=== PATIENT | female | born 2000 | race American Indian/Alaskan Native ===

== ENCOUNTER 2019-05-11 13:46 | Emergency (ER) | payer SELFPAY ==
--- NOTE | 2019-05-11 14:12 | Emergency Department Report ---
Chief Complaint: Extremity Injury, Upper Stated Complaint: LFT SHOULDER POSS DISLOCATED - HPI History of Present Illness: Ana is a 18 yo female MSE screening note: Focused history and physical exam performed. Due to findings the following was ordered: ED Disposition for MSE Clinical Impression: Encounter for medical screening examination Disposition: MED SCREENING EXAM-LEFT Is pt being admited?: No Does the pt Need Aspirin: No Condition: Stable Referrals: AGUSTÍN JAMES MD [Staff Physician] - 3-5 Days Forms: Work/School Release Form(ED)
[2019-05-11 14:13] VITALS: BP 121/75
== END 2019-05-11 14:30 | disposition left against medical advice (07) ==
LOC: ED 13:46
DX: M25.512 Pain in left shoulder (principal)
CPT/HCPCS: 99282

== ENCOUNTER 2019-06-13 12:07 | Emergency (ER) | payer SELFPAY ==
[2019-06-13 12:24] VITALS: BP 119/65
--- NOTE | 2019-06-13 12:33 | Emergency Department Report ---
Chief Complaint: Nausea/Vomiting/Diarrhea Stated Complaint: NAUSEA Time Seen by Provider: 06/13/19 12:27 - HPI History of Present Illness: This is a 18 y ear old with no prior symptoms presents to The ED cc of nausea x 2 days She denies any other symptoms States her LMP was last week and she is not She denies f/c/n/v/abd pain/diarhea/nsal congestion, cough or any other symptoms - ROS Review of Systems: As noted in HPI - Exam Vital Signs: Vital Signs 06/13/19 12:22 Temperature 98.1 F Pulse Rate 68 Respiratory 18 Rate Blood Pressure 119/65 O2 Sat by Pulse 98 Oximetry Physical Exam: GENERAL: Alert and oriented x3, no apparent distress, Normal Gait, atraumatic. LUNGS: Symetrical with respiration, No wheezing, no rales or crackles, CTAB. HEART: S1, S2 present, regular rate and rhythm without murmur, no rubs, no gallops. Non tender to palpation ABDOMEN: No organomegaly was noted,Positive bowel sounds, soft, and non-diste nded. . Nontender to palpation on all Quadrants, NO CVA tenderness. BACK: Full range of motion, no spinal tenderness, nontender to palpation. MSE screening note: Focused history and physical exam performed. Due to findings the following was ordered: ED Medical Decision Making - Medical Decision Making 17 y o f who presents with nausea only Discussed [employer] products Discussed follow up with pcp referrals given to patient Vital sighns normal ED Disposition for MSE Clinical Impression: Nausea Disposition: Z-07 MED SCREENING EXAM-LEFT Is pt being admited?: No Does the pt Need Aspirin: No Condition: Stable Instructions: Acute Nausea and Vomiting (ED) Additional Instructions: Make sure to follow up with the primary care physician as discussed. If you have any worsening symptoms or develop new symptoms please return to ED immediately. Referrals: [facility] [Outside] - 3-5 Days [facility] [Outside] - 3-5 Days Forms: Work/School Release Form(ED) Time of Disposition: 12:40
== END 2019-06-13 13:33 | disposition left against medical advice (07) ==
LOC: ED 12:07
DX: R11.0 Nausea (principal)
CPT/HCPCS: 99281

== ENCOUNTER 2019-12-05 17:37 | Emergency (ER) | payer OTHER, MEDICARE ==
[2019-12-05 17:46] VITALS: BP 139/100
--- NOTE | 2019-12-05 17:49 | Event Note ---
ED Screening Note Date of service: 12/05/19 Time: 17:48 ED Screening Note: c/o chest pain, worse onleft, that occurs mainly with movement of the chest wall and arms denies SOB, cough, leg pain/swelling, hormone use, or recent immobilization This initial assessment/diagnostic orders/clinical plan/treatment(s) is/are subject to change based on patients health status, clinical progression and re- assessment by fellow clinical providers in the ED. Further treatment and workup at subsequent clinical providers discretion. Patient/guardian urged not to elope from the ED as their condition may be serious if not clinically assessed and managed. Initial orders include: cxr ekg
[2019-12-05] MEDS ORDERED: IBUPROFEN 600 MG TAB PO ONE (22:14)
[2019-12-05 23:17] LABS: Bilirubin,Urine NEG (Negative); Blood,Urine NEG (Negative); Color,Urine Yellow (Yellow); Mucus,Urine FEW /HPF; Protein,Urine <15 mg/dL mg/dL (Negative); Urobilinogen,Urine < 2.0 mg/dL (<2.0)
--- NOTE | 2019-12-05 23:26 | Emergency Department Report ---
ED Female HPI - General Chief complaint: Vaginal Bleeding Stated complaint: CHEST PAIN Time Seen by Provider: 12/05/19 17:48 Source: patient Mode of arrival: Ambulatory Limitations: No Limitations - History of Present Illness Initial comments: Patient is a nulliparous 18-year-old -[place] female with a history of asthma who presents to the ED with complaint of acute onset persistent suprapubic pressure and cramps and heavy vaginal bleeding for the last 3 days. Patient states that her LMP was November 10, 2019 and she had expected that her menstrual cycle might start on 08 December 2019 but that she started having her menstrual cycle on December 03, 2019. Patient states that she felt this was abnormal and irregular and decided come to the ED for evaluation. Patient also complains of left shoulder pain that radiates to the left chest wall after a fall 2 weeks ago. Patient denies dizziness, syncope, shortness of breath, fever, chills, cough, nausea, vomiting, syncope, dysuria, urinary frequency and urgency, vaginal discharge, low back pain, headache, diarrhea, or cough. MD Complaint: vaginal bleeding, other (Mild pelvic cramps) -: Sudden, days(s) (3) Location: suprapubic Radiation: non-radiating Severity: mild Severity scale (0 -10): 3 Quality: cramping, sharp Consistency: constant Improves with: none Worsens with: none Are you Now?: No Last Menstrual Period: 11/10/19 EDC: 08/16/20 Associated Symptoms: denies other symptoms, vaginal bleeding, abdominal pain (suprapubic cramps), other (left shoulder and chest wall pain). denies: vaginal discharge, nausea/vomiting, fever/chills, headaches, loss of appetite, dysuria, hematuria, rash, shortness of breath, syncope - Related Data Sexually active: Yes : 0 Para: 0 A: 0 Allergies Allergy/AdvReac Type Severity Reaction Status Date / Time No Known Allergies Allergy Unverified 05/11/19 13:47 ED Review of Systems ROS: Stated complaint: CHEST PAIN Other details as noted in HPI Constitutional: denies: chills, fever Eyes: denies: eye pain, eye discharge, vision change ENT: denies: ear pain, throat pain Respiratory: denies: cough, shortness of breath, wheezing Cardiovascular: chest pain (diffuse left-sided chest wall pain). denies: palpitations Endocrine: no symptoms reported Gastrointestinal: abdominal pain (suprapubic pain). denies: nausea, diarrhea Genitourinary: abnormal menses (vaginal bleeding), other (pelvic cramps). denies: urgency, dysuria, discharge Musculoskeletal: denies: back pain, joint swelling, arthralgia Skin: denies: rash, lesions Neurological: denies: headache, weakness, paresthesias Psychiatric: denies: anxiety, depression Hematological/Lymphatic: denies: easy bleeding, easy bruising ED Past Medical Hx - Past Medical History Previous Medical History?: Yes Hx Asthma: Yes - Surgical History Past Surgical History?: No - Social History Smoking Status: Never Smoker Substance Use Type: Marijuana ED Physical Exam - General Limitations: No Limitations General appearance: alert, in no apparent distress - Head Head exam: Present: atraumatic, normocephalic, normal inspection - Eye Eye exam: Present: normal appearance, PERRL, EOMI Pupils: Present: normal accommodation - ENT ENT exam: Present: normal exam, normal orophraynx, mucous membranes moist, TM's normal bilaterally, normal external ear exam - Neck Neck exam: Present: normal inspection, full ROM - Respiratory Respiratory exam: Present: normal lung sounds bilaterally, chest wall tenderness (Palpable reproducible left sided mild chest wall tenderness). Absent: respiratory distress, wheezes, rales, rhonchi - Cardiovascular Cardiovascular Exam: Present: regular rate, normal rhythm, normal heart sounds. Absent: systolic murmur, diastolic murmur, rubs, gallop - GI/Abdominal GI/Abdominal exam: Present: soft, normal bowel sounds. Absent: tenderness, hyperactive bowel sounds, hypoactive bowel sounds, organomegaly - Bi-manual exam: Present: other (Pelvic exam deferred) - Extremities Exam Extremities exam: Present: normal inspection, full ROM, normal capillary refill - Back Exam Back exam: Present: normal inspection, full ROM. Absent: tenderness, CVA tenderness (R), CVA tenderness (L), muscle spasm, paraspinal tenderness, vertebral tenderness - Neurological Exam Neurological exam: Present: alert, oriented X3, CN II-XII intact, normal gait, reflexes normal - Psychiatric Psychiatric exam: Present: normal affect, normal mood - Skin Skin exam: Present: warm, dry, intact, normal color. Absent: rash ED Course Vital Signs 12/05/19 17:45 Temperature 97.8 F Pulse Rate 95 H Respiratory 16 Rate Blood Pressure 139/100 [Right] O2 Sat by Pulse 96 Oximetry ED Medical Decision Making - Medical Decision Making This is a nulliparous 18-year-old -[place] female with a history of asthma who presents to the ED with complaint of acute onset persistent suprapubic pressure and cramps and heavy vaginal bleeding for the last 3 days. Patient states that her LMP was November 10, 2019 and she had expected that her menstrual cycle might start on 08 December 2019 but that she started having her menstrual cycle on December 03, 2019. Patient states that she felt this was abnormal and irregular and decided come to the ED for evaluation. Patient also complains of left shoulder pain that radiates to the left chest wall after a fall 2 weeks ago. In the ED, patient is alert and oriented x3 and is not in distress. Lab test results were unremarkable including a negative hCG test. Patient will discharge home and advised follow-up with her TALENT DIRECTOR physician as needed. Patient was advised to return to the ED immediately if symptoms get worse. - Differential Diagnosis ; UTI; DUB; Menstrual cycle; Dysmenorrhea Critical care attestation.: If time is entered above; I have spent that time in minutes in the direct care of this critically ill patient, excluding procedure time. ED Disposition Clinical Impression: Dysfunctional uterine hemorrhage, Muscle strain of anterior chest wall Disposition: DC-01 TO HOME OR SELFCARE Is pt being admited?: No Does the pt Need Aspirin: No Condition: Stable Instructions: Dysfunctional Uterine Bleeding (ED), Muscle Strain (ED) Additional Instructions: Follow-up with your TALENT DIRECTOR physician as needed. Take [id number] Tylenol or ibuprofen as needed for chest wall pain. Return to the ED immediately if symptoms get worse. Referrals: ELYSE ARENAS MD [Staff Physician] - 3-5 Days Time of Disposition: 23:33 Print Language: YORUBA
[2019-12-05 23:36] LABS: HCG Qualitative,Urine Negative (Negative)
== END 2019-12-05 23:30 | disposition home or self-care (01) ==
LOC: ED 17:37
DX: S29.012A Strain of muscle and tendon of back wall of thorax, initial encounter (principal); N93.8 Other specified abnormal uterine and vaginal bleeding; J45.909 Unspecified asthma, uncomplicated; F12.10 Cannabis abuse, uncomplicated; X58.XXXA Exposure to other specified factors, initial encounter; Y93.89 Activity, other specified; Y92.89 Other specified places as the place of occurrence of the external cause; Y99.8 Other external cause status
CPT/HCPCS: 81001; 81025